=== PATIENT | female | born 1985 | race Caucasian/White ===

== ENCOUNTER 2018-05-07 11:25 | Emergency (ER) | payer OTHER, MEDICAID ==
[2018-05-07] MEDS ORDERED: NS 1,000 ML IV ONE (12:01)
--- NOTE | 2018-05-07 12:01 | EDPHY ---
H & P Stated Complaint: decreased food intake x 10 days--taking ensure Source: Patient Exam Limitations: Clinical condition - Personal History LMP (Females 10-55): Unknown - Medical/Surgical History Hx Asthma: No Hx Chronic Respiratory Disease: No Hx Diabetes: No Hx Cardiac Disease: No Hx Renal Disease: No Hx Cirrhosis: No Hx Alcoholism: No Hx HIV/AIDS: No Hx Splenectomy or Spleen Trauma: No Other PMH: hydrocephalus. cognitive deficits from . seizure disorder. blind - Social History Smoking Status: Never smoked Time Seen by Provider: 05/07/18 12:00 HPI/ROS: HPI: This is a 33-year-old female who presents with Chief Complaint: decreased food intake x 10 days--taking ensure Location: GI Quality: Decreased food intake Duration: 10 days Signs and Symptoms: no fever, no nausea, no vomiting, no hematemesis, no blood in stool, no abdominal bloating, no diarrhea, no back pain, no urinary symptoms , no vaginal bleeding/discharge, no indigestion, no chest pain, no shortness of breath Timing: Worsening Severity: [id number] Context: Patient has a history of cognitive deficits from , hydrocephalus , congenital blindness presents accompanied by both parents from home at the referral from PCp, Dr. Mcintyre at [facility]. Patient is nonverbal and blind. Ten days of decreased appetite. Parents have been feeding her little bits of ensured twice daily. In the office temperature was in the 80s. Two weeks ago patient had a cold, parents are concerned that she may have pneumonia now. Had a slight nonproductive cough this morning. She did finish her menses this morning. Woke up with wet diaper this morning. No history of urinary tract infections. Modifying Factors: None Comment: ROS: A comprehensive 10 system review of systems is otherwise negative aside from elements mentioned in the history of present illness. MEDICAL/SURGICAL/SOCIAL HISTORY: Medical history: hydrocephalus, cognitive deficits from , seizure disorder , blind Surgical history: Denies Social history: Lives with parents. Disabled. Nonsmoker. Family history noncontributory. CONSTITUTIONAL: Nontoxic-appearing adult white female, awake and alert, no obvious distress HEENT: Atraumatic and normocephalic, congenital blindness. Bilateral suborbital darkening noted. Nares patent; no rhinorrhea; no nasal mucosal edema. Tympanic membranes clear. Oropharynx clear, no exudate and moist pink mucosa. Airway patent. No lymphadenopathy. No meningismus. Cardiovascular: Normal S1/S2, regular rate, regular rhythm, without murmur rub or gallop. PULMONARY/CHEST: Symmetrical and nontender. Clear to auscultation bilaterally with diminished bases. Poor inspiratory effort. No accessory muscle usage. ABDOMEN: Soft, nondistended, nontender, no rebound, no guarding, no peritoneal signs, no masses or organomegaly. No CVAT. EXTREMITIES: 2/2 pulses, strength 5/5, no deformities, no clubbing, no cyanosis or edema. NEUROLOGICAL: Nonverbal. Passively moves all contracted extremities. Does not follow simple commands. SKIN: Warm and dry, no erythema. no rash. Good capillary refill. (Felisha Mejía) Constitutional: Initial Vital Signs Temperature (C) 36.0 C 05/07/18 11:31 Heart Rate 60 05/07/18 11:31 Respiratory Rate 16 05/07/18 11:31 Blood Pressure 118/87 H 05/07/18 11:31 O2 Sat (%) 99 05/07/18 11:31 O2 Delivery Mode Room Air Allergies/Adverse Reactions: No Known Allergies Allergy (Verified 05/07/18 11:31) Home Medications: Medication Instructions Recorded Colace 07/31/09 Depakote 07/31/09 Lamictal 07/31/09 Medical Decision Making ED Course/Re-evaluation: Vital signs reviewed and stable upon arrival. No systemic signs. No hypoxia/ respiratory distress. IV access and laboratory studies ordered along with chest x-ray and urinalysis in out catheterization 1250: Chest x-ray one-view my read shows no opacity, no effusion 1357: Labs reviewed. WBC 10 K, H&H 11.4/35.2, and negative influenza. No electrolyte imbalance/acute kidney injury 1413: Urinalysis shows trace ketones but no signs of infection. Long discussion with family and offered admission and they politely declined. 1500: Reassessed patient and parents report that she is looking around and moving her head more than she has over the last few days. 1538: Drank entire can of Ensure. Again offered admission and parents politely refused. This patient was seen under the supervision of my secondary supervising physician. I evaluated care for this patient independently. Discussed this patient with Dr. Reyes who did not see the patient. (Felisha Mejía) The patient was evaluated and managed by the physician assistant surveyor. I have reviewed this chart and I agree with the findings and plan of care as documented , as indicated by my signature. I am the secondary supervising physician. I spoke with patient's primary care physician, Dr. Rivera at [facility], prior to the patient's arrival in the emergency department. Her PCP assures me that the patient's family is actively and compassionately involved in her care and this is borne out by Felisha Mejía's accounts of her interactions with the family. Dr. Rivera is comfortable with this patient returning home. (Wilma Ryees) Differential Diagnosis: Adult fever including but not limited to viral syndromes including influenza, urinary tract infection, pneumonia and sepsis. (Felisha Mejía) - Data Points Laboratory Results: Laboratory Results 05/07/18 12:07 05/07/18 12:05 Medications Given: Discontinued Medications Sodium Chloride (Ns) 1,000 mls @ 0 mls/hr IV ONCE ONE; Wide Open PRN Reason: Protocol Stop: 05/07/18 12:02 Last Admin: 05/07/18 12:09 Dose: 1,000 mls Departure - Departure Disposition: Home, Routine, Self-Care Clinical Impression: Mild dehydration, Poor fluid intake Condition: Good Instructions: Dehydration (ED) Additional Instructions: Return at once for any worsening symptoms or concerns. Referrals: CLAUDIA MCINTYRE [Other] - 3-4 days, if not improved
[2018-05-07 12:19] LABS: PLATELET COUNT 193 10^3/uL (150-400)
[2018-05-07 16:01] VITALS: BP 132/88
== END 2018-05-07 16:11 | disposition home or self-care (01) ==
DX: R63.8 Other symptoms and signs concerning food and fluid intake (principal); E86.0 Dehydration

== ENCOUNTER 2018-05-20 09:57 | Inpatient (IN) | payer OTHER, MEDICAID ==
[2018-05-20] MEDS ORDERED: NS 1,000 ML IV ONE (10:19)
--- NOTE | 2018-05-20 10:23 | EDPHY ---
HPI/HX/ROS/PE/MDM Narrative: CLINICAL IMPRESSION: Left lower lobe pneumonia, weakness, dehydration, possible shunt malfunction ASSESSMENT/PLAN: Patient is a 33-year-old female with a complicated and significant history of hydrocephalus with shunt, severe cognitive impairment, cerebral palsy, seizure disorder and clinical blindness who presents with ongoing worsening cough, decreased oral intake and decreased urine output. Patient is afebrile, she is not toxic appearing and in no acute distress. She is at her baseline and nonverbal. CBC revealed no evidence of leukocytosis. CMP with no significant metabolic abnormality or evidence of acute kidney injury, mild transaminitis. Influenza negative, RSV negative. Valproic acid level subtherapeutic at 35. Chest x-ray revealed left lower lobe aspiration versus pneumonia. Urinalysis revealed no evidence of acute urinary tract infection. CT head revealed dilated ventricles with functioning right-sided shunt however questionable functioning left-sided shunt. Patient was treated conservatively for community- acquired pneumonia and was given Rocephin and azithromycin in the emergency department. Neurosurgery was consulted, Dr. Youngblood spoke with Dr. Mcclain who will formally consult this patient. History and physical examination is consistent with new left lower lobe pneumonia as well as possible left shunt malfunction which could also certainly contribute to the constellation of her symptoms. The patient remained hemodynamically stable in the emergency department. She will be admitted to the hospitalist service, Dr. Whitehead will admit this patient and neurosurgery will follow as well. Case discussed with and patient seen by Dr. Youngblood. DIFFERENTIAL DX: Weakness including but not limited to electrolyte abnormality, infectious causes , shunt malfunction, intracranial hemorrhage, dehydration, malnutrition. ED COURSE: 10:[address] Youngblood 11:27 a.m.: Chest x-ray with new left lower lobe pneumonia versus aspiration. CHIEF COMPLAINT: Worsening cough, weakness, dehydration HPI: Patient is a 33-year-old female with a history of hydrocephalus with shunt, severe cognitive impairment, cerebral palsy, seizure disorder and clinical blindness who presents to the emergency department with ongoing and worsening cough, decreased oral intake and decreased urine output. The patient is present with mother and father who are her very attentive primary caregivers. Parents report approximately 3 weeks ago patient started to develop a cough, has since had decreased oral intake. Was seen and evaluated in the emergency department the end of April with a reassuring workup and discharged home. Since that time she is continuing to have a progressive worsening and productive cough as well as decreased oral intake. They endorses she does cough so hard at times she almost vomits. The parents have been giving their child Ensure however she has very little to or to eat anything. They say that she is not at her baseline, she normally is smiling and happy however seems to be more whiny than normal. Mother reports she had similar symptoms prior to this patient getting sick. They deny any fevers, nausea or vomiting. She is in a diaper, they deny any foul-smelling urine. They do state that her urine output is decreased. Bowel movements have also been decreased, denies any diarrhea, melena or hematochezia. There has been no recent travel, no recent antibiotic use. PMH: Hydrocephalus with shunt, severe cognitive delay, CP, seizure and clinical blindness Pertinent Past Surgical History: Denies Family History: Noncontributory Social History: Lives with parents multimedia specialist, disabled. They deny smoking in the household, no alcohol. REVIEW OF SYSTEMS: All other systems negative Constitutional: Decreased appetite. No fever, no chills. Eyes: No discharge, vision change ENT: No sore throat, congestion, ear pain. Cardiovascular: No chest pain, no palpitations. Respiratory: Cough. No no shortness of breath. Gastrointestinal: No abdominal pain, no vomiting, diarrhea. Genitourinary: No hematuria, dysuria, flank pain, pelvic pain Musculoskeletal: No back pain, joint swelling, joint pain, myalgias. Skin: No rashes, color change. Neurological: No headache, dizziness, weakness. PHYSICAL EXAM: General Appearance: Alert, nonverbal not toxic-appearing, no acute distress. HENT: Normocephalic, atraumatic. Bilateral external ears are normal. Bilateral tympanic membranes are normal with pearly mathew reflex. Nares are clear, mucosa is pink. Oropharynx is clear, uvula is midline. There is no tonsillar enlargement or exudate. Eyes: Congenital blindness, bilateral suborbital darkening Neck: Supple, nontender, no lymphadenopathy, no midline pain, FROM, no meningismus. Respiratory: There are no retractions, lungs are clear to auscultation. Cardiac: Regular rate and rhythm, no murmurs or gallops. Gastrointestinal: Abdomen is soft, nontender, bowel sounds normal, no masses/ hernia, no rigidity, guarding or focal peritoneal findings. Neurological: Nonverbal. Upper extremities contracted, passively moves all extremities. Does not follow commands. Skin: Warm, dry, no rashes, no nodules on palpation. Musculoskeletal: Contracted UE, no swelling, or erythema. Psychiatric: Nonverbal, there is no agitation. MEDICAL DECISION MAKING: Patient was seen independently. Secondary supervising physician at time of evaluation was . Diagnosis: Left lower lobe pneumonia, weakness, possible left shunt malfunction . New, requires workup Summary: See Assessment and Plan for summary of ED visit Clinical lab tests: ordered / reviewed. Independent visualization of images, tracing, or specimens: Yes. Decision to obtain medical records or history from someone other than the patient: Yes parents. Review / Summarize previous medical records: Yes. Discussed patient with another provider: Yes, Dr. Youngblood Patient Progress: Stable, admit . (Korina Garcia) MDM: I also saw the patient at 11:00 a.m.. Patient is blind and developmentally disabled. History was from mom and dad decreased appetite and change of mental status. No significant findings on exam other than the developmental disability. Chest x-ray reviewed by me shows probable left lower lobe pneumonia. I agree with treatment plan and management CT head is ordered to assess MENTAL HEALTH PRACTITIONER shunt integrity Patient has an abnormal head CT showing atrophy and dilated ventricles. It appears that 1 of the MENTAL HEALTH PRACTITIONER shunt tubing is not connected. I consulted discussed case with Neurosurgery who will see the patient in consultation for integrity of the MENTAL HEALTH PRACTITIONER shunt (Ellis Youngblood) - Data Points Imaging Results: Imaging Impressions Chest X-Ray 05/20/18 10:18 Impression: Suspect new left lower lobe pneumonia versus aspiration. Laboratory Results: Laboratory Results 05/20/18 10:55 05/20/18 10:55 05/20/18 05/20/18 05/20/18 11:00 10:55 10:55 WBC 8.12 10^3/uL 10^3/uL (3.80-9.50) RBC 3.61 10^6/uL L 10^6/uL (4.18-5.33) Hgb 10.3 g/dL L g/dL (12.6-16.3) Hct 32.6 % L % (38.0-47.0) MCV 90.3 fL fL (81.5-99.8) MCH 28.5 pg pg (27.9-34.1) MCHC 31.6 g/dL L g/dL (32.4-36.7) RDW 26.0 % H % (11.5-15.2) Plt Count 243 10^3/uL 10^3/uL (150-400) MPV 10.0 fL fL (8.7-11.7) Neut % (Auto) 53.9 % % (39.3-74.2) Lymph % (Auto) 39.5 % % (15.0-45.0) [place] % (Auto) 4.4 % L % (4.5-13.0) Eos % (Auto) 1.4 % % (0.6-7.6) Baso % (Auto) 0.2 % L % (0.3-1.7) Nucleat RBC Rel Count 0.4 % H % (0.0-0.2) Absolute Neuts (auto) 4.37 10^3/uL 10^3/uL (1.70-6.50) Absolute Lymphs (auto) 3.21 10^3/uL H 10^3/uL (1.00-3.00) Absolute Monos (auto) 0.36 10^3/uL 10^3/uL (0.30-0.80) Absolute Eos (auto) 0.11 10^3/uL 10^3/uL (0.03-0.40) Absolute Basos (auto) 0.02 10^3/uL 10^3/uL (0.02-0.10) Absolute Nucleated RBC 0.03 10^3/uL H 10^3/uL (0-0.01) Immature Gran % 0.6 % % (0.0-1.1) Immature Gran # 0.05 10^3/uL 10^3/uL (0.00-0.10) RBC/WBC/PLT Morphology NORMAL (NORMAL) Platelet Estimate ADEQUATE (ADEQ) Sodium REJ Potassium Not Reported Chloride Not Reported Carbon Dioxide Not Reported Anion Gap Not Reported BUN Not Reported Creatinine Not Reported Estimated GFR Not Reported Glucose Not Reported Calcium Not Reported Total Bilirubin Not Reported AST Not Reported ALT Not Reported Alkaline Phosphatase Not Reported Total Protein Not Reported Albumin Not Reported Nasal Influenza A PCR NEGATIVE FOR FLU A (NEGATIVE) Nasal Influenza B PCR NEGATIVE FOR FLU B (NEGATIVE) Valproic Acid REJ RSV (PCR) NEGATIVE FOR RSV (NEGATIVE) Medications Given: Discontinued Medications Sodium Chloride (Ns) 1,000 mls @ 0 mls/hr IV ONCE ONE PRN Reason: Wide Open Stop: 05/20/18 10:20 Last Admin: 05/20/18 11:31 Dose: 1,000 mls Azithromycin 500 mg/ Sodium (Chloride) 255 mls @ 255 mls/hr IV EDNOW ONE PRN Reason: Protocol Stop: 05/20/18 12:30 Last Admin: 05/20/18 13:34 Dose: 255 mls Ceftriaxone Sodium/Dextrose (Rocephin 1 Gm (Premix)) 50 mls @ 100 mls/hr IV EDNOW ONE PRN Reason: Protocol Stop: 05/20/18 12:00 Last Admin: 05/20/18 12:55 Dose: 50 mls Microbiology Results: MICROBIOLOGY 05/20/18 11:00 Nasal, Sinus - Swab Respiratory Panel (PCR) - Final No Organism Detected By Pcr General Initial Vital Signs: Initial Vital Signs Temperature (C) 36.4 C 05/20/18 09:59 Heart Rate 58 L 05/20/18 09:59 Respiratory Rate 17 05/20/18 09:59 Blood Pressure 121/61 H 05/20/18 09:59 O2 Sat (%) 96 05/20/18 09:59 O2 Delivery Mode Room Air Allergies/Adverse Reactions: No Known Allergies Allergy (Verified 05/20/18 09:59) Home Medications: Medication Instructions Recorded Docusate Sodium [Colace 100 MG (*)] 100 mg PO BID 07/31/09 lamoTRIgine [LamICTAL XR] 100 mg PO DAILY 07/31/09 Acetaminophen [Tylenol 325mg (*)] 325 mg PO Q6HRS PRN 05/20/18 Divalproex [Depakote] 250 mg PO DAILY 05/20/18 Divalproex [Depakote] 375 mg PO HS 05/20/18 Herbals/Supplements -Info Only 1 ea PO DAILY 05/20/18 Multivitamins [Multivitamin (*)] 1 each PO DAILY 05/20/18 Departure - Departure Disposition: [facility] Acute Condition: Fair
[2018-05-20 11:14] LABS: PLATELET COUNT 243 10^3/uL (150-400)
[2018-05-20] MEDS ORDERED: AZITHROMYCIN IV 500 MG in NS 250 ML IV ONE (11:31)
[2018-05-20] MEDS ORDERED: ONDANSETRON DISINTEGRATING 4 MG TAB PO PRN (12:48)
[2018-05-20] MEDS ORDERED: ONDANSETRON 4 MG/2 ML VIAL IVP PRN (12:48)
[2018-05-20] MEDS ORDERED: NS 1,000 ML IV SCH (13:45)
--- NOTE | 2018-05-20 15:09 | PDGENHP ---
History and Physical - Chief Complaint Cough, decreased appetite - History of Present Illness This is a 33 y/o female with severe cognitive impairment presenting with a progressively worsening productive cough and decreased appetite and fluid intake. She was last seen in the emergency room late April for the cough and given IV hydration to which her parents, the caregivers, reported she "perked up," and "was looking around more than she has been," so they thought she was improving. Unfortunately, her cough worsened and it "sounded" productive however she is unable to produce any phlegm and her appetite has decreased significantly to only 2 Ensure bottles (8oz, 220 calories per bottle) a day and minimal fluid intake. Her parents report sometimes she coughs so hard she almost vomits. They report she is not at her baseline and is "whiny." The pt is unable to communicate, unable to follow commands, and is clinically blind. Per parents, no fevers, nausea, or vomiting. She is being admitted for treatment and monitoring. Past Medical/Surgical History 1. Hydrocephalus with shunt 2. Severe cognitive impairment 3. Cerebral palsy 4. Seizure disorder 5. Clinical blindness 6. Tendon release 7. Multiple shunts Social 1. Disabled. Cared for by parents full-time. 2. No smoking in household, no illicit drug use. No alcohol use. History Information - Allergies/Home Medication List Allergies/Adverse Reactions: No Known Allergies Allergy (Verified 05/20/18 09:59) Home Medications: Docusate Sodium [Colace 100 MG (*)] 100 mg PO BID 07/31/09 [Last Taken 05/20/18] lamoTRIgine [LamICTAL XR] 100 mg PO DAILY 07/31/09 [Last Taken 05/20/18] Acetaminophen [Tylenol 325mg (*)] 325 mg PO Q6HRS PRN 05/20/18 [Last Taken Unknown] Divalproex [Depakote] 250 mg PO DAILY 05/20/18 [Last Taken 05/20/18] Divalproex [Depakote] 375 mg PO HS 05/20/18 [Last Taken 05/19/18] Multivitamins [Multivitamin (*)] 1 each PO DAILY 05/20/18 [Last Taken 05/20/18] RX: Herbals/Supplements -Info Only 1 ea PO DAILY 05/20/18 [Last Taken Unknown] I have personally reviewed and updated: family history, medical history, social history, surgical history Past Medical History: See HPI list - Surgical History Additional surgical history: See HPI list - Family History Positive for: non-pertinent - Social History Smoking Status: Never smoked Alcohol Use: None Drug Use: None Review of Systems Review of Systems: ROS: 10pt was reviewed & negative except for what was stated in HPI & below Constitutional: Reports: malaise, recent illness EENMT: Reports: no symptoms Cardiac: Reports: no symptoms Respiratory: Reports: cough Gastrointestinal: Reports: no symptoms Genitourinary: Reports: no symptoms Muscolosketal: Reports: no symptoms Skin: Reports: no symptoms Neurological: Reports: pre-existing deficit Hematologic/Lymphatic: Reports: no symptoms Immunologic/Allergy: Reports: no symptoms Physical Exam Physical Exam: Lab data and imaging reviewed Temp Pulse Resp BP Pulse Ox 36.4 C 57 L 16 125/86 H 98 05/20/18 09:59 05/20/18 13:35 05/20/18 13:35 05/20/18 13:35 05/20/18 13:35 Constitutional: chronically ill appearing, uncomfortable Eyes: other (clinical blindness; suborbital darkening) Ears, Nose, Mouth, Throat: dry mucous membranes Cardiovascular: regular rate and rhythym, no murmur, rub, or gallop, No edema Peripheral Pulses: 2+: dorsalis-pedis (R) (Radial 2+), dorsalis-pedis (L) ( Radial 2+) Respiratory: reduced air movement (throughout lung pederson) Gastrointestinal: normoactive bowel sounds, soft, non-tender abdomen, no palpable masses Genitourinary: no bladder fullness, no bladder tenderness Skin: warm, normal color, no rashes or abrasions, no fluctuance, no induration, No mottled Musculoskeletal: other (BUE contracted; unable to follow commands) Neurologic: weakness Psychiatric: other (Unable to assess as pt is non-verbal; per parents, pt's baseline is usually "happy and smiling." In this encounter, she was moving her head left to right and occasionally spit up Ensure the father was attempting to feed her.) Lymph, Heme, Immunologic: no cervical LAD, no supraclavicular LAD Lab Data & Imaging Review 05/20/18 10:55 05/20/18 14:35 WBC 8.12 10^3/uL (3.80-9.50) 05/20/18 10:55 RBC 3.61 10^6/uL (4.18-5.33) L 05/20/18 10:55 Hgb 10.3 g/dL (12.6-16.3) L 05/20/18 10:55 Hct 32.6 % (38.0-47.0) L 05/20/18 10:55 MCV 90.3 fL (81.5-99.8) 05/20/18 10:55 MCH 28.5 pg (27.9-34.1) 05/20/18 10:55 MCHC 31.6 g/dL (32.4-36.7) L 05/20/18 10:55 RDW 26.0 % (11.5-15.2) H 05/20/18 10:55 Plt Count 243 10^3/uL (150-400) 05/20/18 10:55 MPV 10.0 fL (8.7-11.7) 05/20/18 10:55 Neut % (Auto) 53.9 % (39.3-74.2) 05/20/18 10:55 Lymph % (Auto) 39.5 % (15.0-45.0) 05/20/18 10:55 [place] % (Auto) 4.4 % (4.5-13.0) L 05/20/18 10:55 Eos % (Auto) 1.4 % (0.6-7.6) 05/20/18 10:55 Baso % (Auto) 0.2 % (0.3-1.7) L 05/20/18 10:55 Nucleat RBC Rel Count 0.4 % (0.0-0.2) H 05/20/18 10:55 Absolute Neuts (auto) 4.37 10^3/uL (1.70-6.50) 05/20/18 10:55 Absolute Lymphs (auto) 3.21 10^3/uL (1.00-3.00) H 05/20/18 10:55 Absolute Monos (auto) 0.36 10^3/uL (0.30-0.80) 05/20/18 10:55 Absolute Eos (auto) 0.11 10^3/uL (0.03-0.40) 05/20/18 10:55 Absolute Basos (auto) 0.02 10^3/uL (0.02-0.10) 05/20/18 10:55 Absolute Nucleated RBC 0.03 10^3/uL (0-0.01) H 05/20/18 10:55 Immature Gran % 0.6 % (0.0-1.1) 05/20/18 10:55 Immature Gran # 0.05 10^3/uL (0.00-0.10) 05/20/18 10:55 RBC/WBC/PLT Morphology NORMAL (NORMAL) 05/20/18 10:55 Platelet Estimate ADEQUATE (ADEQ) 05/20/18 10:55 Sodium REJ 05/20/18 12:45 Potassium Not Reported 05/20/18 12:45 Chloride Not Reported 05/20/18 12:45 Carbon Dioxide Not Reported 05/20/18 12:45 Anion Gap Not Reported 05/20/18 12:45 BUN Not Reported 05/20/18 12:45 Creatinine Not Reported 05/20/18 12:45 Estimated GFR Not Reported 05/20/18 12:45 Glucose Not Reported 05/20/18 12:45 Calcium Not Reported 05/20/18 12:45 Total Bilirubin Not Reported 05/20/18 12:45 AST Not Reported 05/20/18 12:45 ALT Not Reported 05/20/18 12:45 Alkaline Phosphatase Not Reported 05/20/18 12:45 Total Protein Not Reported 05/20/18 12:45 Albumin Not Reported 05/20/18 12:45 Nasal Influenza A PCR NEGATIVE FOR FLU A (NEGATIVE) 05/20/18 11:00 Nasal Influenza B PCR NEGATIVE FOR FLU B (NEGATIVE) 05/20/18 11:00 Valproic Acid TNP 05/20/18 12:45 RSV (PCR) NEGATIVE FOR RSV (NEGATIVE) 05/20/18 11:00 Assessment & Plan Plan: This is a 33 y/o female with severe cognitive impairment who presents with a worsening 3 week cough and altered mental status. She was seen in late April and given IVF, labwork and imaging were unremarkable at the time. Today, CXR reveals suspicion of left lower lobe pneumonia or aspiration as well as left sided shunt fracture. Head CT to evaluate for LOOM SETTER FOURDRINIER shunt obstruction revealing left parietal shunt catheter is well-positioned however the shunt tubing at the level of the neck does not appear to be in continuity. Also marked dilatation of the fourth and lateral ventricles may merely be due to severe cerebral and cerebellar volume loss. Normal caliber third ventricle suggests shunt dysfunction is less likely. 1. Aspiration pneumonia: she is hemodynamically stable at this time. +cough, altered mental status, poor PO intake and appetite, changes in recent CXRs, per parents she has a poor gag reflex -Received Azithromycin + Rocephin in the emergency room; will initiate Unasyn 3gm IV Q6H -TECHNOLOGY ADVISOR to evaluate; NPO until cleared by TECHNOLOGY ADVISOR -Dietary consult -Received 1L NS in emergency room; d/t poor oral intake, will assist with IVF -Negative for influenza or RSV 2. Left-shunt fracture: this has been seen on the previous CXR dated 05/07/18. No other recent CXR or imaging to compare except in 2009 which appears to not be fractured. Timing of when the fracture took place is uncertain. -Neurosurgery to consult and evaluate; spoke to MAIRA Christianson 3. Seizures: valproic acid level low at 32.3. Previous labwork dating 04/28/18 revealed therapeutic range. The parents report she has been able to continue to take all her medications. Continue to monitor. -Seizure precautions and assessments QShift -She may continue depakote and lamictal 4. Cognitive impairment: she is clinically blind, unable to follow commands, cannot verbalize. Parents are her full-time caregivers. Diet: NPO, speech evaluation needs to occur before intake of regular diet and medications VTE ppx: SCDs Code: Full Dispo: Admit to inpatient d/t multiple medical complexes
[2018-05-20] MEDS ORDERED: BISACODYL 10 MG SUPP PR PRN (16:38)
[2018-05-20] MEDS: D5W NS 1,000 ML IV SCH (16:50)
[2018-05-20] MEDS: AMPICILLIN/SULBACTAM 3 GM in NS 100 ML IV SCH ×2 (17:24→23:59)
--- NOTE | 2018-05-20 17:30 | PDMN ---
Medical Necessity Medical necessity: Pt meets inpt criteria per MD order and MCG M-283, Pneumonia Due to Aspiration, 3 days. 33 y/o w/hx hydrocephalus w/shunt, CP, severe cog impairment, seizure disorder, and blindness presents w/worsening prod cough for 3 weeks, AMS, and decreased PO intake admitted w/aspiration PNA. Also, L shunt fx (timing of fx uncertain), to be evaluated by Neurosurg. Est LOS>2MN for management of above in pt w/complex medical hx.
--- NOTE | 2018-05-20 17:50 | GCON ---
CHIEF COMPLAINT: Failure to thrive. Decreased appetite and cough. HISTORY OF PRESENT ILLNESS: This is a 33-year-old female with a history of a complex shunt history and has had 2 BOOK CRITIC shunts placed approximately 15 years ago. She has been shunt dependent since as she was severely premature. She presented to [facility] today with progressively worsening productive cough and a decreased appetite and fluid intake. She was last seen in the emergency room late April for the cough and given IV hydration and was doing well, but she has started to decline over the last week with minimal fluid intake and a worsening cough. Neurosurgery service was consulted due to her history of a shunt in order to rule out shunt malfunction. She normally gets all of her shunt care at the [facility] and does have a team there. They state that the shunt on the right side of her head has been disconnected, but has not been removed totally as they did not want to put her through another surgery. They do state that the left shunt has been functioning. Parents do state that they do not believe that her current decline is due to her shunt, as in the past, she has presented very differently when she is having problems with her shunt. REVIEW OF SYSTEMS: Unable to obtain as the patient is currently nonverbal. PAST MEDICAL HISTORY: Patient has a history of hydrocephalus, shunt dependency , severe cognitive impairment, cerebral palsy, seizure disorder, clinical blindness, tendon release, and multiple shunts. SOCIAL HISTORY: Patient is cared for by her parents manager maritime who are at her bedside today. ALLERGIES: Patient has no known drug allergies. HOME MEDICATIONS: Include: Colace, Lamictal, Tylenol, Depakote, multivitamin, herbal supplements. SURGICAL HISTORY: Multiple shunt revisions, the last shunt revision, per the parents, they do not remember where this was done. It could have been done at [facility] in [place], or [facility], but was replacement and revision of her left ventriculoperitoneal shunt. She has had multiple shunt revisions in the past. For other surgical history, please see the list as stated in the EMR. FAMILY HISTORY: Reviewed and is not pertinent to this admission. SOCIAL HISTORY: She is a nonsmoker and no alcohol use and no other illicit drug use. OBJECTIVE: VITAL SIGNS: Temperature 36.4 degrees Celsius, pulse 57, respirations 16, blood pressure 125/86, pulse ox 98% on room air. CONSTITUTIONAL: Patient is chronically ill appearing, younger than stated age, is moaning with some discomfort with an audible raspy cough. EYES: Pupils were equal and reactive to light and accommodation. Patient is tracking appropriately. However, the patient's clinical state is not allowing her to participate fully in her exam today. HEAD: Both shunts were palpated. The left and right shunt valves were palpated and were unable to palpate a depressible reservoir. Parents are not sure what type of shunt she has, so it is unclear to say whether or not there should have been a palpable reservoir or not. NEUROLOGIC: Patient is moving all 4 extremities. However, again exam is limited due to the patient's severe cognitive abilities and overall weakness and atrophy of her musculature. SKIN: There is no cyanosis or edema noted. There is no tenderness to palpation over her shunt sites. PSYCHOLOGICAL: Unable to really assess as patient is nonverbal. Per the parents, the patient' s baseline is usually happy and smiling. Today, she does have some sort of tremor in her head, moving [id number], and occasionally is moaning as well. LABORATORY DATA: White blood cell count 8.12, red blood cell count 3.61, hemoglobin 10.3, hematocrit 32.6, platelets 243. Sodium 146, potassium 4.8, chloride 112, carbon dioxide 27, anion gap 7, BUN 21, creatinine 0.5, estimated GFR greater than 60. Glucose 104, total bilirubin less than 0.1, AST 85, ALT 120, alk phos 141, total protein 5.8, albumin 2.8. Influenza negative for flu A and B. Valproic acid level is 32.3. RSV negative for RSV. DIAGNOSTIC IMAGIN. A head CT without contrast was performed and does show marked dilatation of the 4th and lateral ventricles merely may be just severe cerebral and cerebellar volume loss. Normal-caliber in 3rd ventricle suggests shunt dysfunction is less likely. 2. Right parietal occipital shunt is well positioned transversing the posterior aspect of the right 3rd ventricle and 4th ventricle and extracranial tubing appears to be intact. 3. Left parietal shunt catheter is well positioned. However, the shunt tubing at the level of the neck does not appear to be in continuity on the radiograph. 4. No intracranial hemorrhage or subdural hematoma. 5. A chest x-ray was performed that shows suspect new left lower lobe pneumonia versus aspiration. ASSESSMENT AND PLAN: This is a 33-year-old female who has a history of a complex shunt history and shunt dependency from . She presents to the [facility] ER with failure to thrive and a worsening cough and failure to drink fluids. Neurosurgery services were consulted to examine and rule out any shunt malfunction as reason for her failure to thrive. The patient was seen by Dr. Madera and myself and did speak with the parents and unfortunately without her prior scans or other medical records to review in such a complex shunt patient, it is hard to assess whether her CT scan looks any different or if there have been any changes to her scan, as we do not have anything to compare to. Per her parents, they do report that they do not feel that her symptoms currently are medical device sales representative of a shunt malfunction as in the past, she has presented very differently when this has been occurring. We will obtain a shunt series to ensure that the shunt catheter is intact and beyond that, we did suggest that the parents follow up with their normal shunt team down at the [place]. They understood this and again it was felt that her symptoms currently were not in line with a shunt malfunction, as in the past, she has displayed very different symptoms when this has been occurring. We will follow up on her shunt series tomorrow to ensure that her shunts are in line. Again, of note, her right BOOK CRITIC shunt reportedly has been disconnected and is no longer functioning, but the left BOOK CRITIC shunt is supposed to be the one that is working currently. We will obtain a shunt series and then likely sign off tomorrow and recommend further followup with her shunt team at the [place]. As it seems that most of her symptoms are consistent possibly with a newfound lower lobe pneumonia. /[id number]/MODL MTDD
--- NOTE | 2018-05-20 19:26 | HOSPPROG ---
Hospitalist Progress Note Assessment/Plan: Discussed case in detail with Grazyna Monroe LEAN SIX SIGMA BLACK BELT. Patient seen and examined. Agree with H&P as outlined by Grazyna Monroe. Aspiration pneumonia - seems to have started with viral illness that then resulted in metabolic encephalopathy, with subsequent decrease swallow function and then secondary aspiration pneumonia. She is currently not able to swallow anything and parents have been using syringes to squirt water and Ensure into her mouth. Prior to this illness she has never has swallow issues in the past. They are very concerned with her nutrition. I suspect she will not pass her swallow eval tomorrow. NPO for now. If she fails swallow they would like to have Dobbhoff tube placed for temporary nutrition, with hope that her swallow returns to baseline when she is improved. They think she would tolerate a Dobbhoff and not pull it out. They know what a PEG tube is, and would like to avoid if possible, still hopeful that her swallow will return. I explained the risks of TPN and that using her GI tract would be preferable if artificial nutrition is needed. Objective: Vital Signs Temp Pulse Resp BP Pulse Ox 36.4 C 59 L 16 115/67 96 05/20/18 09:59 05/20/18 15:46 05/20/18 15:46 05/20/18 15:46 05/20/18 15:46 Laboratory Results 05/20/18 14:35 05/19/18 05/20/18 05/21/18 05:59 05:59 05:59 Intake Total 1000 Balance 1000 CXR reviewed, my personal interpretation is - LLL PNA case d/w Neurosurgery regarding SENIOR FINANCIAL REPORTING ACCOUNTANT shunt check - Physical Exam Constitutional: no apparent distress, chronically ill appearing, cachectic Cardiovascular: regular rate and rhythym, no murmur, rub, or gallop Respiratory: no respiratory distress, no rales or rhonchi, clear to auscultation Gastrointestinal: normoactive bowel sounds, soft, non-tender abdomen, no palpable masses Skin: no rashes or abrasions, no fluctuance, no induration Neurologic: No AAOx3 Psychiatric: encephalopathic, poor insight, poor judgement, poor memory, other ( minimally responsive), No interacting appropriately, No agitated ICD10 Worksheet Patient Problems: Problems Problem Status Onset Aspiration pneumonia Acute - ICD10 Problem Qualifiers (1) Aspiration pneumonia Qualifiers: Aspiration pneumonia type: unspecified Laterality: left Lung location: lower lobe of lung Qualified Code(s): J69.0 - Pneumonitis due to inhalation of food and vomit
[2018-05-20] MEDS ORDERED: KETOROLAC 30 MG/1 ML SDV IVP ONE (19:31)
[2018-05-20] MEDS: VALPROATE SODIUM IV SCH (20:19)
[2018-05-20] MEDS: D5W IV SCH (20:19)
[2018-05-21] MEDS: VALPROATE SODIUM IV SCH ×3 (02:33→14:15)
[2018-05-21] MEDS: D5W IV SCH ×3 (02:33→14:15)
[2018-05-21] MEDS: AMPICILLIN/SULBACTAM 3 GM in NS 100 ML IV SCH ×4 (05:15→23:38)
[2018-05-21] MEDS: D5W NS 1,000 ML IV SCH (05:55)
[2018-05-21 06:26] LABS: INR 1.05 (0.83-1.16); PROTIME(PATIENT) 13.9 SEC (12.0-15.0)
[2018-05-21 06:31] LABS: PLATELET COUNT 172 10^3/uL (150-400)
--- NOTE | 2018-05-21 07:52 | NEUSURGPN ---
Assessment/Plan: 33 yo female with developmental delay, nonverbal, with COSMETIC ASSEMBLER shunt. Pneumonia - neuro stable - shunt series reviewed by Dr. Madera. Appears to be 3 shunt systems. Two on the right and one on the left. There is one on the right that appears to be [employer] and intact - do not suspect a shunt malfunction - recommend patient establish care upon discharge with a shunt specialist at - will sign off and follow peripherally, please contact us with any further questions/concerns Discussed with Dr. Madera Subjective: No new overnight issues. Nonverbal. Objective: Eyes open. Nonverbal Moves all extremities - Physician Discussed Patient with Dr.: Madera Neurosurgery Physical Exam - Vitals, I&O, Labs I and O 05/20/18 05/21/18 05/22/18 05:59 05:59 05:59 Intake Total 1000 Balance 1000 Weight 29.484 kg Intake: IV Infused (ml) 1000 Other: Number of Voids Incontinence 5 Number of Stools Incontinence 1 Vital Signs Temp Pulse Resp BP Pulse Ox 35.0 C L 62 16 104/78 98 05/21/18 04:00 05/21/18 04:00 05/21/18 04:00 05/21/18 04:00 05/21/18 04:00 Laboratory Results 05/21/18 05:55 05/21/18 05:55 ICD10 Worksheet Patient Problems: Problems Problem Status Onset Aspiration pneumonia Acute
[2018-05-21] MEDS: DOCUSATE SODIUM 100 MG CAP PO SCH ×3 (08:59→21:35)
[2018-05-21] MEDS: MULTIVITAMINS 1 EACH TAB PO SCH (08:59)
[2018-05-21] MEDS ORDERED: Herbals/Supplements -Info Only PO SCH (09:00)
[2018-05-21] MEDS: LAMOTRIGINE 100 MG PO SCH (09:27)
--- NOTE | 2018-05-21 15:02 | ASMTCMCOM ---
CM Note CM Note Notes: Met with pt's mother, pt admitted for pneumonia. Pt is a 33 yr old cognitively impaired and non verbal woman, her parents are her grape grower care givers although they do have a woman who takes care of her in her home 6 hrs a day except Sundays. Mother interested in discussing code status, Rani from [facility] will come and meet with her today. DC Plan: Home w/parents Date Signed: 05/21/2018 03:01 PM Electronically Signed By:Connie Loya RN
--- NOTE | 2018-05-21 17:43 | HOSPPROG ---
Hospitalist Progress Note Assessment/Plan: * Aspiration pneumonia -IV Unasyn * Cerebral palsy with severe cognitive dysfunction * Dysphagia -passed swallow today - advance diet * Hydrocephalus s/p BODY PRESS OPERATOR shunt -reviewed by neurosurgery - they are okay * Bilateral hip dislocation * Seizure disorder -back to PO valproic acid * Increased LFT -check liver US COR status - parents requested discussion - there seems to be disagreement between and regarding what COR status is desired. Will allow them to discuss overnight and check in with them tomorrow to see if decision to change DNR Subjective: non verbal, passed swallow Objective: Vital Signs Temp Pulse Resp BP Pulse Ox 35.2 C L 57 L 16 109/71 98 05/21/18 15:55 05/21/18 15:55 05/21/18 15:55 05/21/18 15:55 05/21/18 15:55 Laboratory Results 05/21/18 05:55 05/21/18 05:55 05/20/18 05/21/18 05/22/18 05:59 05:59 05:59 Intake Total 1000 Balance 1000 PT 13.9 SEC (12.0-15.0) 05/21/18 05:55 INR 1.05 (0.83-1.16) 05/21/18 05:55 Skull Xray - BODY PRESS OPERATOR shunt okay CXR viewed, my personal interpretation is - left sided infiltrate, focal - Physical Exam Constitutional: no apparent distress, chronically ill appearing, cachectic Cardiovascular: regular rate and rhythym, no murmur, rub, or gallop Respiratory: no respiratory distress, no rales or rhonchi, clear to auscultation Gastrointestinal: normoactive bowel sounds, soft, non-tender abdomen, no palpable masses Skin: no rashes or abrasions, no fluctuance, no induration Neurologic: No AAOx3 Psychiatric: encephalopathic, poor insight, poor judgement, poor memory, No interacting appropriately, No agitated ICD10 Worksheet Patient Problems: Problems Problem Status Onset Aspiration pneumonia Acute - ICD10 Problem Qualifiers (1) Aspiration pneumonia Qualifiers: Aspiration pneumonia type: unspecified Laterality: left Lung location: lower lobe of lung Qualified Code(s): J69.0 - Pneumonitis due to inhalation of food and vomit
[2018-05-21] MEDS: DIVALPROEX NA 125 MG TAB PO SCH (21:34)
[2018-05-22] MEDS: AMPICILLIN/SULBACTAM 3 GM in NS 100 ML IV SCH ×3 (06:00→17:42)
[2018-05-22 06:03] LABS: PLATELET COUNT 197 10^3/uL (150-400)
[2018-05-22] MEDS: DIVALPROEX NA 125 MG TAB PO SCH ×2 (08:57→20:25)
[2018-05-22] MEDS: LAMOTRIGINE 100 MG PO SCH (08:58)
[2018-05-22] MEDS: MULTIVITAMINS 1 EACH TAB PO SCH (08:59)
[2018-05-22] MEDS: DOCUSATE SODIUM 100 MG CAP PO SCH (09:05)
[2018-05-22] MEDS: 1/2 NS 1,000 ML IV SCH (09:16)
[2018-05-22] MEDS ORDERED: LORazepam 2 MG/ML INJ IVP ONE (14:10)
[2018-05-22] MEDS ORDERED: IOPAMIDOL (ISOVUE 370) 100 ML BTL IV ONE (15:37)
[2018-05-22] MEDS ORDERED: LACTULOSE 20 GM/30 ML UDCUP PO PRN (16:28)
[2018-05-22] MEDS ORDERED: POLYETHYLENE GLYCOL 3350 17 GM PKT PO PRN (16:28)
[2018-05-22] MEDS ORDERED: BISACODYL 10 MG SUPP PR PRN (16:28)
[2018-05-22] MEDS ORDERED: MAGNESIUM HYDROXIDE 30 ML UDCUP PO PRN (16:28)
--- NOTE | 2018-05-22 17:28 | HOSPPROG ---
Hospitalist Progress Note Assessment/Plan: * Aspiration pneumonia -IV Unasyn * Cerebral palsy with severe cognitive dysfunction * Dysphagia -passed swallow - but no liquids allowed * Hydrocephalus s/p PROVIDER NETWORK ANALYST shunt -reviewed by neurosurgery - they are okay * Bilateral hip dislocation * Seizure disorder -PO valproic acid * Increased LFT with increased lipase -US/CT unremarkable -viral hepatitis panel pending -? hypoperfusion due to dehydration - but unclear why they are still rising * Hypernatremia -needs more free H2O, but not cleared by ST -IVF 1/2 NS * Fecal impaction -stool ball seen on CT -manual disimpaction/enemas as needed to clear Subjective: No new complaints Objective: Vital Signs Temp Pulse Resp BP Pulse Ox 35.4 C L 57 L 14 117/76 97 05/22/18 04:00 05/22/18 16:00 05/22/18 16:00 05/22/18 16:00 05/22/18 16:00 Laboratory Results 05/22/18 05:46 05/22/18 05:46 05/21/18 05/22/18 05/23/18 05:59 05:59 05:59 Intake Total 1000 0 Balance 1000 0 PT 13.9 SEC (12.0-15.0) 05/21/18 05:55 INR 1.05 (0.83-1.16) 05/21/18 05:55 abd us - negative case d/w DR Hernandez and CT reviewed - liver/pancreas okay, fecal impaction at rectum - Physical Exam Constitutional: no apparent distress, appears nourished, not in pain Cardiovascular: regular rate and rhythym, no murmur, rub, or gallop Respiratory: no respiratory distress, no rales or rhonchi, clear to auscultation Gastrointestinal: normoactive bowel sounds, soft, non-tender abdomen, no palpable masses Skin: no rashes or abrasions, no fluctuance, no induration Neurologic: No AAOx3 Psychiatric: encephalopathic, poor insight, poor judgement, poor memory, No interacting appropriately, No agitated ICD10 Worksheet Patient Problems: Problems Problem Status Onset Aspiration pneumonia Acute - ICD10 Problem Qualifiers (1) Aspiration pneumonia Qualifiers: Aspiration pneumonia type: unspecified Laterality: left Lung location: lower lobe of lung Qualified Code(s): J69.0 - Pneumonitis due to inhalation of food and vomit
[2018-05-22] MEDS: SENNOSIDES/DOCUSATE SODIUM TAB PO SCH (20:25)
[2018-05-23] MEDS: 1/2 NS 1,000 ML IV SCH ×2 (00:26→16:03)
[2018-05-23] MEDS: AMPICILLIN/SULBACTAM 3 GM in NS 100 ML IV SCH ×5 (00:26→23:30)
[2018-05-23 06:57] LABS: PLATELET COUNT 189 10^3/uL (150-400)
[2018-05-23] MEDS: LAMOTRIGINE 100 MG PO SCH (08:58)
[2018-05-23] MEDS: DIVALPROEX NA 125 MG TAB PO SCH ×2 (08:59→20:03)
[2018-05-23] MEDS: MULTIVITAMINS 1 EACH TAB PO SCH (09:00)
[2018-05-23] MEDS: SENNOSIDES/DOCUSATE SODIUM TAB PO SCH ×2 (09:00→20:03)
--- NOTE | 2018-05-23 17:25 | HOSPPROG ---
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 * Dysphagia -passed swallow - but no liquids allowed -taking only 100 calories per day - family very concerned about nutrition -place feeding tube until increased PO -at baseline she has great appetite, no dysphagia and self feeds finger foods * Hydrocephalus s/p HOUSE ADMIN shunt -reviewed by neurosurgery - they are okay * Metabolic encephalopathy -per family she is not at baseline, mental status significant reduced * Bilateral hip dislocation * Seizure disorder -PO valproic acid * Increased LFT with increased lipase -US/CT unremarkable -viral hepatitis panel pending, will send other serologies -? 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 Subjective: spitting out most food, taking only 100calories per day Objective: Vital Signs Temp Pulse Resp BP Pulse Ox 35.1 C L 58 L 16 121/87 H 96 05/23/18 16:00 05/23/18 16:00 05/23/18 16:00 05/23/18 16:00 05/23/18 16:00 Laboratory Results 05/23/18 06:27 05/23/18 06:27 05/22/18 05/23/18 05/24/18 05:59 05:59 05:59 Intake Total 0 749 Balance 0 749 PT 13.9 SEC (12.0-15.0) 05/21/18 05:55 INR 1.05 (0.83-1.16) 05/21/18 05:55 - Time Spent With Patient Time Spent with Patient: greater than 35 minutes (discussing risk benefit of feeding tube) Time Spent with Patient: Greater than 35 minutes spent on this patients care, greater than 50% of time spent counseling, educating, and coordinating care regarding the above mentioned plan. - Physical Exam Constitutional: no apparent distress, appears nourished, not in pain Cardiovascular: regular rate and rhythym, no murmur, rub, or gallop Respiratory: no respiratory distress, no rales or rhonchi, clear to auscultation Gastrointestinal: normoactive bowel sounds, soft, non-tender abdomen, no palpable masses Skin: no rashes or abrasions, no fluctuance, no induration Neurologic: No AAOx3 Psychiatric: encephalopathic, poor insight, poor judgement, poor memory, No interacting appropriately, No agitated ICD10 Worksheet Patient Problems: Problems Problem Status Onset Aspiration pneumonia Acute - ICD10 Problem Qualifiers (1) Aspiration pneumonia Qualifiers: Aspiration pneumonia type: unspecified Laterality: left Lung location: lower lobe of lung Qualified Code(s): J69.0 - Pneumonitis due to inhalation of food and vomit
[2018-05-24 02:51] LABS: HEPATITIS A ANTIBODY IGM (BCH) NEGATIVE (NEGATIVE); HEPATITIS B CORE AB IGM NEGATIVE (NEGATIVE); HEPATITIS B SURFACE ANTIGEN NEGATIVE (NEGATIVE); HEPATITIS C ANTIBODY TOTAL NEGATIVE (NEGATIVE)
[2018-05-24] MEDS: AMPICILLIN/SULBACTAM 3 GM in NS 100 ML IV SCH ×3 (05:09→17:35)
[2018-05-24 07:42] LABS: INR 0.9 (0.83-1.16); PROTIME(PATIENT) 12.4 SEC (12.0-15.0)
[2018-05-24 09:55] LABS: HIV TYPE 1 AND 2 NEGATIVE (NEGATIVE)
[2018-05-24] MEDS: DIVALPROEX NA 125 MG TAB PO SCH ×2 (10:24→20:30)
[2018-05-24] MEDS: LAMOTRIGINE 100 MG PO SCH (10:24)
[2018-05-24] MEDS: MULTIVITAMINS 1 EACH TAB PO SCH (10:26)
[2018-05-24] MEDS: SENNOSIDES/DOCUSATE SODIUM TAB PO SCH ×2 (10:26→20:29)
--- NOTE | 2018-05-24 11:36 | ASMTCMCOM ---
CM Note CM Note Notes: CM discussed w/ Dr. Monk. Pt had a feeding tube placed yesterday. Pts family would like to discuss code status w/ Dr. Monk. Dr. Monk will have conversation w/ pts family. Pt will most likely d/c with family, as they are her primary caregivers. [facility] has cleared pt. CM available for needs. Plan: Independent Date Signed: 05/24/2018 11:35 AM Electronically Signed By:ITZEL Rabago
--- NOTE | 2018-05-24 14:17 | HOSPPROG ---
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 * Decreased PO intake -passed swallow - but no liquids allowed, refusing PO despite -was taking only 100 calories per day prior to admission - family very concerned about nutrition -s/p NGT placement on 05/23 until increased PO -at baseline she has great appetite, no dysphagia and self feeds finger foods -May be infection, pancreatitis (elevated Lipase) contributing to decreased PO/refusal of food, discussed with patient's parents this afternoon that if PO intake does not increase we would be discussing PEG tube placement * Hydrocephalus s/p MAGNETIC LOCATER shunt -reviewed by neurosurgery - signed off * Metabolic encephalopathy -per family she is not at baseline, mental status significant reduced -May be infection contributing vs. medication effects (on anti-epileptics) vs. seizure -Head CT on admission with no acute abnormality -Will check levels of Lamotrigine, Depakote, consult neurology if abnormal * Bilateral hip dislocation * Seizure disorder -PO Lamotrigine, Depakote, checking levels as above * Increased LFT with increased lipase -US/CT unremarkable -viral hepatitis negative, will send other serologies -? 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 FEN: Tube Feeds DVT PPx: Lovenox Code: Full, discussed with parents today Dispo: Pending clinical course Subjective: Patient appears comfortable, non-verbal Objective: Vital Signs Temp Pulse Resp BP Pulse Ox 35.5 C L 71 16 114/66 97 05/24/18 08:00 05/24/18 08:00 05/24/18 08:00 05/24/18 08:00 05/24/18 08:00 Laboratory Results 05/24/18 07:15 05/24/18 07:15 05/23/18 05/24/18 05/25/18 05:59 05:59 05:59 Intake Total 749 950 Balance 749 950 PT 12.4 SEC (12.0-15.0) 05/24/18 07:15 INR 0.90 (0.83-1.16) 05/24/18 07:15 - Physical Exam Constitutional: chronically ill appearing Eyes: PERRL Cardiovascular: regular rate and rhythym Respiratory: no respiratory distress Gastrointestinal: soft, non-tender abdomen Skin: warm Neurologic: No AAOx3 Psychiatric: No interacting appropriately ICD10 Worksheet Patient Problems: Problems Problem Status Onset Aspiration pneumonia Acute
[2018-05-25] MEDS: AMPICILLIN/SULBACTAM 3 GM in NS 100 ML IV SCH ×5 (00:07→23:13)
[2018-05-25] MEDS: LAMOTRIGINE 100 MG PO SCH (08:20)
[2018-05-25] MEDS: MULTIVITAMINS 1 EACH TAB PO SCH (08:22)
[2018-05-25] MEDS: DIVALPROEX NA 125 MG TAB PO SCH ×2 (08:25→21:50)
[2018-05-25] MEDS: ENOXAPARIN 40 MG/0.4 ML SYR SC SCH (08:30)
[2018-05-25] MEDS: SENNOSIDES/DOCUSATE SODIUM TAB PO SCH ×2 (10:01→21:55)
--- NOTE | 2018-05-25 11:19 | HOSPPROG ---
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 * Decreased PO intake -passed swallow - but no liquids allowed, refusing PO despite -was taking only 100 calories per day prior to admission - family very concerned about nutrition -s/p NGT placement on 05/23 until increased PO -at baseline she has great appetite, no dysphagia and self feeds finger foods -May be infection, pancreatitis (elevated Lipase) contributing to decreased PO/refusal of food, discussed with patient's parents that if PO intake does not increase we would be discussing PEG tube placement * Hydrocephalus s/p CHILD CARE shunt -reviewed by neurosurgery - signed off * Metabolic encephalopathy -per family she is not at baseline, mental status significant reduced -May be infection contributing vs. medication effects (on anti-epileptics) vs. seizure -Head CT on admission with no acute abnormality -Will check levels of Lamotrigine, Depakote, consult neurology if abnormal * Bilateral hip dislocation * Seizure disorder -PO Lamotrigine, Depakote, checking levels as above * Increased LFT with increased lipase -US/CT unremarkable -viral hepatitis negative, will send other serologies -? 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 FEN: Tube Feeds DVT PPx: Lovenox Code: Full, discussed with parents today Dispo: Pending clinical course Subjective: Patient more awake and alert this AM Objective: Vital Signs Temp Pulse Resp BP Pulse Ox 35.4 C L 73 14 117/76 94 05/25/18 00:00 05/25/18 08:00 05/25/18 08:00 05/25/18 08:00 05/25/18 08:00 Laboratory Results 05/25/18 10:35 05/24/18 05/25/18 05/26/18 05:59 05:59 05:59 Intake Total 950 395 Output Total 150 Balance 950 245 PT 12.4 SEC (12.0-15.0) 05/24/18 07:15 INR 0.90 (0.83-1.16) 05/24/18 07:15 ICD10 Worksheet Patient Problems: Problems Problem Status Onset Aspiration pneumonia Acute
[2018-05-25] MEDS ORDERED: GUAIFENESIN/DM 10 ML UDCUP PO PRN (11:20)
[2018-05-25] MEDS: OXYMETAZOLINE 30 ML NASAL SPRAY EACHNARE SCH ×2 (11:49→21:43)
[2018-05-25 12:09] LABS: PLATELET COUNT 208 10^3/uL (150-400)
[2018-05-25] MEDS: ACETAMINOPHEN 325 MG TAB PO PRN (13:59)
[2018-05-26] MEDS: AMPICILLIN/SULBACTAM 3 GM in NS 100 ML IV SCH ×2 (06:02→11:19)
[2018-05-26] MEDS: SENNOSIDES/DOCUSATE SODIUM TAB PO SCH ×2 (09:10→20:19)
[2018-05-26] MEDS: MULTIVITAMINS 1 EACH TAB PO SCH (09:10)
[2018-05-26] MEDS: DIVALPROEX NA 125 MG TAB PO SCH ×2 (09:11→20:20)
[2018-05-26] MEDS: LAMOTRIGINE 100 MG PO SCH (09:11)
[2018-05-26] MEDS: ENOXAPARIN 40 MG/0.4 ML SYR SC SCH (09:11)
[2018-05-26] MEDS: OXYMETAZOLINE 30 ML NASAL SPRAY EACHNARE SCH ×2 (09:12→20:18)
--- NOTE | 2018-05-26 15:30 | HOSPPROG ---
Hospitalist Progress Note Assessment/Plan: * Aspiration pneumonia -Completing IV Unasyn today (Day 7 of 7 day course) * Decreased PO intake -passed swallow - but no liquids allowed, refusing PO despite -was taking only 100 calories per day prior to admission - family very concerned about nutrition -s/p NGT placement on 05/23 until increased PO -at baseline she has great appetite, no dysphagia and self feeds finger foods -May be infection, pancreatitis (elevated Lipase) contributing to decreased PO/refusal of food, discussed with patient's parents that if PO intake does not increase we would be discussing PEG tube placement - Patient able to take some PO today, continue to monitor calorie intake * Hydrocephalus s/p SALES VENDOR shunt -reviewed by neurosurgery - signed off * Metabolic encephalopathy -per family she is not at baseline, mental status significant reduced -May be infection contributing vs. medication effects (on anti-epileptics) vs. seizure -Head CT on admission with no acute abnormality -Levels of Lamotrigine, Depakote WNL * Bilateral hip dislocation * Seizure disorder -PO Lamotrigine, Depakote, checked levels as above * Increased LFT with increased lipase -US/CT unremarkable -viral hepatitis negative, other serologies pending -? 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 FEN: Tube Feeds DVT PPx: Lovenox Code: Full, discussed with parents today Dispo: Pending clinical course Subjective: Patient continues to be more alert and awake this AM Objective: Vital Signs Temp Pulse Resp BP Pulse Ox 36.7 C 68 16 98/55 L 96 05/26/18 07:23 05/26/18 07:23 05/26/18 07:23 05/26/18 07:23 05/26/18 07:23 Laboratory Results 05/25/18 11:57 05/26/18 04:39 05/25/18 05/26/18 05/27/18 05:59 05:59 05:59 Intake Total 395 1080 Output Total 150 Balance 245 1080 PT 12.4 SEC (12.0-15.0) 05/24/18 07:15 INR 0.90 (0.83-1.16) 05/24/18 07:15 - Physical Exam Constitutional: no apparent distress Eyes: anicteric sclera Ears, Nose, Mouth, Throat: dry mucous membranes Cardiovascular: regular rate and rhythym Respiratory: no respiratory distress Gastrointestinal: soft, non-tender abdomen Skin: normal color Neurologic: No AAOx3 Psychiatric: No interacting appropriately ICD10 Worksheet Patient Problems: Problems Problem Status Onset Aspiration pneumonia Acute
[2018-05-27] MEDS: ACETAMINOPHEN 325 MG TAB PO PRN ×2 (04:29→09:34)
[2018-05-27] MEDS: MULTIVITAMINS 1 EACH TAB PO SCH (09:19)
[2018-05-27] MEDS: SENNOSIDES/DOCUSATE SODIUM TAB PO SCH ×2 (09:19→20:32)
[2018-05-27] MEDS: ENOXAPARIN 40 MG/0.4 ML SYR SC SCH (09:19)
[2018-05-27] MEDS: LAMOTRIGINE 100 MG PO SCH (09:20)
[2018-05-27] MEDS: DIVALPROEX NA 125 MG TAB PO SCH ×2 (09:20→20:09)
[2018-05-27] MEDS: OXYMETAZOLINE 30 ML NASAL SPRAY EACHNARE SCH ×2 (09:21→20:09)
--- NOTE | 2018-05-27 12:41 | HOSPPROG ---
Hospitalist Progress Note Assessment/Plan: * Aspiration pneumonia -Completed IV Unasyn on 05/26 (Day 7 of 7 day course) * Decreased PO intake -passed swallow - but no liquids allowed, refusing PO despite -was taking only 100 calories per day prior to admission - family very concerned about nutrition -s/p NGT placement on 05/23 until increased PO -at baseline she has great appetite, no dysphagia and self feeds finger foods -May be infection, pancreatitis (elevated Lipase) contributing to decreased PO/refusal of food, discussed with patient's parents that if PO intake does not increase we would be discussing PEG tube placement -Patient able to take some PO today, continue to monitor calorie intake, d/c NGT when tolerating enough PO * Increased LFT with increased lipase -LFTs elevated, downtrending with slight increase today - US and CT performed during this admission which did not show any acute etiology -viral hepatitis negative, other serologies incudling SHIRLEY, CMV, EBV, HIV, AnTi-smooth muscle negative as well pending -? hypoperfusion due to dehydration vs. medication SE (checked levels of anti -epileptics which were WNL) - Continue to monitor * Hydrocephalus s/p PULPWOOD CUTTER shunt -reviewed by neurosurgery - signed off * Metabolic encephalopathy -Improving daily -May be infection contributing vs. medication effects (on anti-epileptics) vs. 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 FEN: Tube Feeds DVT PPx: Lovenox Code: Full, discussed with parents today Dispo: Pending clinical course, d/c pending patient's PO intake, need for records management associate feeding tube if no Subjective: Patient more awake and alert this AM Objective: Vital Signs Temp Pulse Resp BP Pulse Ox 36.7 C 64 16 103/63 96 05/26/18 07:23 05/27/18 08:00 05/27/18 08:00 05/27/18 08:00 05/27/18 08:00 Laboratory Results 05/27/18 05:45 05/27/18 05:45 05/26/18 05/27/18 05/28/18 05:59 05:59 05:59 Intake Total 1080 Balance 1080 PT 12.4 SEC (12.0-15.0) 05/24/18 07:15 INR 0.90 (0.83-1.16) 05/24/18 07:15 - Physical Exam Constitutional: chronically ill appearing Eyes: anicteric sclera Ears, Nose, Mouth, Throat: dry mucous membranes Respiratory: no respiratory distress Gastrointestinal: soft, non-tender abdomen Skin: normal color Neurologic: No AAOx3 Psychiatric: No interacting appropriately ICD10 Worksheet Patient Problems: Problems Problem Status Onset Aspiration pneumonia Acute
--- NOTE | 2018-05-27 12:55 | ASMTCMCOM ---
CM Note CM Note Notes: Despite repeated attempts by LINE SERVICER to get patient to take PO, she is refusing. Hospitalist to discuss PEG tube placement w parents. CM will continue to follow for any possible d/c needs. Date Signed: 05/27/2018 12:55 PM Electronically Signed By:Eva Presley RN
[2018-05-28] MEDS ORDERED: SODIUM ZIRCONIUM CYCLOSILICATE 10 GM PACKET PO ONE (06:48)
[2018-05-28] MEDS: OXYMETAZOLINE 30 ML NASAL SPRAY EACHNARE SCH ×2 (08:43→20:39)
[2018-05-28] MEDS: ENOXAPARIN 40 MG/0.4 ML SYR SC SCH (08:43)
[2018-05-28] MEDS: MULTIVITAMINS 1 EACH TAB PO SCH (08:43)
[2018-05-28] MEDS: LAMOTRIGINE 100 MG PO SCH (08:43)
[2018-05-28] MEDS: DIVALPROEX NA 125 MG TAB PO SCH ×2 (08:43→20:38)
[2018-05-28] MEDS: SENNOSIDES/DOCUSATE SODIUM TAB PO SCH ×2 (08:44→19:46)
--- NOTE | 2018-05-28 12:43 | HOSPPROG ---
Hospitalist Progress Note Assessment/Plan: * Aspiration pneumonia -Completed IV Unasyn on 05/26 (Day 7 of 7 day course) * Decreased PO intake -passed swallow - but no liquids allowed, refusing PO despite -was taking only 100 calories per day prior to admission - family very concerned about nutrition -s/p NGT placement on 05/23 until increased PO -at baseline she has great appetite, no dysphagia and self feeds finger foods -May be infection, pancreatitis (elevated Lipase) contributing to decreased PO/refusal of food, discussed with patient's parents that if PO intake does not increase we would be discussing PEG tube placement -Patient able to take some PO today, continue to monitor calorie intake, d/c NGT when tolerating enough PO * Increased LFT with increased lipase -LFTs elevated, downtrending with slight increase today - US and CT performed during this admission which did not show any acute etiology -viral hepatitis negative, other serologies incudling SHIRLEY, CMV, EBV, HIV, AnTi-smooth muscle negative as well pending -? hypoperfusion due to dehydration vs. medication SE (checked levels of anti -epileptics which were WNL) - Continue to monitor * Hydrocephalus s/p REFUND SPECIALIST shunt -reviewed by neurosurgery - signed off * Metabolic encephalopathy -Improving daily -May be infection contributing vs. medication effects (on anti-epileptics) vs. 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 FEN: Tube Feeds DVT PPx: Lovenox Code: Full, discussed with parents today Dispo: Pending clinical course, d/c pending patient's PO intake, need for longwall machine operator helper feeding tube if no Objective: Vital Signs Temp Pulse Resp BP Pulse Ox 97.4 F 86 16 105/45 L 91 L 05/28/18 08:00 05/28/18 08:00 05/28/18 08:00 05/28/18 08:00 05/28/18 08:00 Laboratory Results 05/28/18 08:57 05/28/18 05:24 05/27/18 05/28/18 05/29/18 11:59 11:59 11:59 Intake Total 650 Balance 650 PT 12.4 SEC (12.0-15.0) 05/24/18 07:15 INR 0.90 (0.83-1.16) 05/24/18 07:15 ICD10 Worksheet Patient Problems: Problems Problem Status Onset Aspiration pneumonia Acute
[2018-05-29] MEDS: LEVOTHYROXINE 25 MCG TAB PO SCH (05:36)
[2018-05-29 06:04] LABS: PLATELET COUNT 265 10^3/uL (150-400)
[2018-05-29] MEDS: DIVALPROEX NA 125 MG TAB PO SCH ×2 (08:51→20:45)
[2018-05-29] MEDS: LAMOTRIGINE 100 MG PO SCH (08:51)
[2018-05-29] MEDS: ENOXAPARIN 40 MG/0.4 ML SYR SC SCH (08:53)
[2018-05-29] MEDS: MULTIVITAMINS 1 EACH TAB PO SCH (08:57)
[2018-05-29] MEDS: SENNOSIDES/DOCUSATE SODIUM TAB PO SCH ×2 (08:57→22:07)
[2018-05-29] MEDS: OXYMETAZOLINE 30 ML NASAL SPRAY EACHNARE SCH ×2 (09:06→22:07)
[2018-05-30] MEDS: LEVOTHYROXINE 25 MCG TAB PO SCH (06:20)
[2018-05-30] MEDS: DIVALPROEX NA 125 MG TAB PO SCH (07:42)
[2018-05-30] MEDS: LAMOTRIGINE 100 MG PO SCH (07:42)
[2018-05-30] MEDS: MULTIVITAMINS 1 EACH TAB PO SCH (07:42)
[2018-05-30] MEDS: OXYMETAZOLINE 30 ML NASAL SPRAY EACHNARE SCH (07:43)
[2018-05-30] MEDS: ENOXAPARIN 40 MG/0.4 ML SYR SC SCH (07:44)
[2018-05-30] MEDS: SENNOSIDES/DOCUSATE SODIUM TAB PO SCH (07:46)
[2018-05-30 08:23] VITALS: BP 115/85
--- NOTE | 2018-05-30 14:34 | ASMTDCNOTE ---
Case Management Discharge Discharge Order Complete? Answers: Yes Patient to Obtain Answers: via Family Medications Transportation Arranged Answers: Family/Friends Transport will Pick (Date 05/30/2018 12:00 AM & Time) Family Notified Answers: Yes Notes: in the room Discharge Comments Notes: Spoke with pt's parents in the room. Pt has private caregivers who support the family at home. Pt is now eating and family plans to transport her home in their wheelchair equipped vehicle. OYSTER CULTIVATOR recommending dc to home. No CM needs noted at this time. CM available should needs change. Date Signed: 05/30/2018 02:33 PM Electronically Signed By:Milagros Kwong
--- NOTE | 2018-05-30 14:38 | ASDISCHSUM ---
Discharge Information Plan Status:Home with No Needs Medically Cleared to Leave:05/29/2018 Discharge Date:05/29/2018 CM D/C Disposition:Home, Routine, Self-Care ADT D/C Disposition:Home, Routine, Self-Care Projected Discharge Date:05/29/2018 Transportation at D/C:Family Discharge Delay Reason: Follow-Up Date:05/29/2018 Discharge Slot: Final Diagnosis:Pneumonia Placement Information Patient Contact Information Contact Name:RIO Relationship:Mother Address:[address] Work Phone: City:[place] [facility] Phone: [facility]/Zip Code:[place] [address] Email: Financial Information Financial Class:HMO and PPO Plans Primary Plan Desc:[facility] Primary Plan Number:[id number] Secondary Plan Desc:[employer] [place] Secondary Plan Number:[id number] Assessment Information LACE LACE Length of stay for Answers: 7-13 days current admission Acuity / Level of Answers: Yes Care: Did the patient have an inpatient admission? 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 Pt is a 33 yr old cognitively impaired and non verbal woman, her parents are her time clock inspector care givers although they do have a woman who takes care of her in her home 6 hrs a day except Sundays. Mother interested in discussing code status, Rani from [facility] will come and meet with her today. DC Plan: Home w/parents Date Signed: 05/21/2018 03:01 PM Electronically Signed By:Connie Loya RN [facility] CM Progress Note CM Note CM Note Notes: CM discussed w/ Dr. Monk. Pt had a feeding tube placed yesterday. Pts family would like to discuss code status w/ Dr. Monk. Dr. Monk will have conversation w/ pts family. Pt will most likely d/c with family, as they are her primary caregivers. [facility] has cleared pt. CM available for needs. Plan: Independent Date Signed: 05/24/2018 11:35 AM Electronically Signed By:ITZEL Rabago [facility] CM Progress Note CM Note CM Note Notes: Despite repeated attempts by FOREST LOGISTICS MANAGER to get patient to take PO, she is refusing. Hospitalist to discuss PEG tube placement w parents. CM will continue to follow for any possible d/c needs. Date Signed: 05/27/2018 12:55 PM Electronically Signed By:Eva Presley RN Case Management Discharge Plan Note Case Management Discharge Discharge Order Complete? Answers: Yes Patient to Obtain Answers: via Family Medications Transportation Arranged Answers: Family/Friends Transport will Pick (Date 05/30/2018 12:00 AM & Time) Family Notified Answers: Yes Notes: in the room Discharge Comments Notes: Spoke with pt's parents in the room. Pt has private caregivers who support the family at home. Pt is now eating and family plans to transport her home in their wheelchair equipped vehicle. FOREST LOGISTICS MANAGER recommending dc to home. No CM needs noted at this time. CM available should needs change. Date Signed: 05/30/2018 02:33 PM Electronically Signed By:Milagros Kwong Intervention Information
== END 2018-05-30 14:57 | disposition home or self-care (01) | DRG 177 ==
LOC: OBSVTOIN 13:38 → F3E 15:31
PROVIDERS: ADMIT Internal Medicine; ATTEND Internal Medicine
DX: J69.0 Pneumonitis due to inhalation of food and vomit (principal); G93.41 Metabolic encephalopathy; E87.0 Hyperosmolality and hypernatremia; E86.0 Dehydration; G80.9 Cerebral palsy, unspecified; H54.8 Legal blindness, as defined in USA; G40.909 Epilepsy, unspecified, not intractable, without status epilepticus; R13.10 Dysphagia, unspecified; K56.41 Fecal impaction; Z98.2 Presence of cerebrospinal fluid drainage device
CPT/HCPCS: 80175-90; 82607-90; 84481-90; 86255-90; 86644-90; 86645-90; 86664-90; 86665-90; 92526-GN; 92610-GN; 96365; G0472; J0295; J0456; J0696; J1650; J1885; Q9967

== ENCOUNTER 2018-07-16 14:37 | Emergency (ER) | payer OTHER, MEDICAID ==
--- NOTE | 2018-07-16 16:00 | EDPHY ---
H & P Time Seen by Provider: 07/16/18 15:21 HPI/ROS: CHIEF COMPLAINT: Tremors, grimace HISTORY OF PRESENT ILLNESS: The patient is a 33-year-old female with severe cognitive impairment, who has had numerous shunts placed presents emergency department with tremors and increased grimace. The patient's care providers and parents are concerned that her shunt is malfunctioning. She has done this previously when she has shunt malfunction. Patient currently has a shunt on the right side. This had failed and was inoperable. She subsequently had a shunt placed on the left side. (right was left in place). The family has noticed that the left shunt is newly beaded and firm. Patient has not had any vomiting. No fever. Patient was admitted to the hospital in May with an aspiration pneumonia. Patient had an outpatient chest x-ray today that was reported as normal. REVIEW OF SYSTEMS: 10 systems were reveiwed and are negative with the exception of the elements mentioned in the history of present illness. Past Medical/Surgical History: Includes hydrocephalus with shunt, severe cognitive impairment, cerebral palsy, seizure disorder, blindness, aspiration pneumonia Social history: The patient lives with her family. Smoking Status: Never smoked Physical Exam: 36.1, 114/89, 64, 18 GENERAL: Wheelchair-bound. Eyes open. Contracted extremities. Not able to respond. HEENT: No signs of dehydration. Blind NECK: Normal, supple. Patient has bilateral shunts in place. The left shunt is firm to palpation. It is beaded. RESPIRATORY: Clear to auscultation bilaterally, no rales, rhonchi or wheezing. CVS: Regular rate and rhythm, no rubs, murmurs, or gallops. ABDOMEN: Soft, nondistended. BACK: Normal to inspection, no CVA tenderness. SKIN: Normal color, no rash, warm, dry. No pallor. EXTREMITIES: No pedal edema, no calf tenderness, no joint swelling. NEURO/PSYCH: Severe cognitive impairment. In wheelchair. Unresponsive to voice or questioning. Contracted extremities. Spontaneous movement of her head neck. Constitutional: Initial Vital Signs Temperature (C) 36.1 C 07/16/18 14:46 Heart Rate 64 07/16/18 14:46 Respiratory Rate 18 07/16/18 14:46 Blood Pressure 114/89 H 07/16/18 14:46 O2 Sat (%) 98 07/16/18 14:46 O2 Delivery Mode Room Air Allergies/Adverse Reactions: No Known Allergies Allergy (Verified 07/16/18 14:45) Home Medications: Medication Instructions Recorded Docusate Sodium [Colace 100 MG (*)] 100 mg PO BID 07/31/09 lamoTRIgine [LamICTAL XR] 100 mg PO DAILY 07/31/09 Acetaminophen [Tylenol 325mg (*)] 325 mg PO Q6HRS PRN 05/20/18 Divalproex [Depakote] 250 mg PO DAILY 05/20/18 Divalproex [Depakote] 375 mg PO HS 05/20/18 Herbals/Supplements -Info Only 1 ea PO DAILY 05/20/18 Multivitamins [Multivitamin (*)] 1 each PO DAILY 05/20/18 Levothyroxine [Synthroid 25 mcg 25 mcg PO DAILY #30 tab 05/30/18 (*)] Medical Decision Making - Diagnostics Imaging Results: Imaging Impressions Head CT 07/16/18 16:05 Impression: 1. No definite acute findings. 2. Stable positioning of ventriculostomy catheters, with grossly stable marked atrophy and ventriculomegaly with relative sparing of the third ventricle. 3. Stable discontinuity of the left shunt catheter at the level of the clavicle since May 2018. 4. Additional findings as above. Findings discussed with PEARL COOK 07/16/2018 at 18:21. Skull X-Ray 07/16/18 16:08 Impression: Bilateral intracranial shunt catheters. No obvious change. A lateral view of this skull would be helpful for comparison purposes. Chest X-Ray 07/16/18 16:11 Impression: No significant change x2 months. ED Course/Re-evaluation: In the emergency department I discussed the case with the patient's care providers in parents. The states that she typically grimaces and becomes more tremulous when her shunt becomes occluded. They have been to this reportedly 10 times. They noticed that her left-sided shunt is newly firm and beaded. The only difference between her previous episodes is that she is not actively vomiting. The patient gets her care at . I discussed the case with Dr. Mcclain from Neurosurgery. He recommended a head CT was shunt series. He recommended I contact Neurosurgery at . neurosurgery was paged. I reviewed the patient's previous medical record. On 05/20/2018 she had an evaluation by Neurosurgery. At that time she had a shunt series reviewed by Dr. Madera. Per the report, did appear to be 3 shunt system. 2 on the right and 1 on the left. The shunt on the right appeared to be a [employer] and intact. Did not suspect shunt malfunction. White count is normal. Hematocrit is slightly low. Chemistry panel is pending. Imaging is pending. I updated the family. I discussed the case with Neurosurgery from . He recommended Dr. Mcclain see the patient in the emergency department. Head CT: Please refer the dictated report. No change from previous imaging. Shunt series. Unchanged from previous imaging. I discussed the case with Dr. Mcclain from Neurosurgery. He came to the emergency department to evaluate the patient. I discussed the case with Neurosurgery. He felt this was likely shunt problem and I should consult with Neurology. I discussed the case with Dr. Huntley from Neurology. They felt the patient should go directly to the ER. I discussed the case with Dr. Valente from the ER. She accepted the patient. Patient was in the emergency department for extended period time due to her initial workup and multiple phone calls with [place]. Differential Diagnosis: My differential includes but is not limited to hydrocephalus, shunt malfunction , meningitis, encephalitis, bacteremia, sepsis, pneumonia, aspiration pneumonia Critical Care Time: Patient required 55 min of critical care time. This was exclusive of any unbundled procedure. This was due to patient's presentation, altered mental status, consultation with Neurosurgery at [facility] and , time at bedside and review of her previous medical record. - Data Points Laboratory Results: Laboratory Results 07/16/18 17:05 07/16/18 17:05 07/16/18 07/16/18 17:05 17:05 WBC 6.26 10^3/uL 10^3/uL (3.80-9.50) RBC 3.61 10^6/uL L 10^6/uL (4.18-5.33) Hgb 10.5 g/dL L g/dL (12.6-16.3) Hct 33.4 % L % (38.0-47.0) MCV 92.5 fL fL (81.5-99.8) MCH 29.1 pg pg (27.9-34.1) MCHC 31.4 g/dL L g/dL (32.4-36.7) RDW 26.5 % H % (11.5-15.2) Plt Count 160 10^3/uL 10^3/uL (150-400) MPV 10.0 fL fL (8.7-11.7) Neut % (Auto) 50.7 % % (39.3-74.2) Lymph % (Auto) 41.7 % % (15.0-45.0) [place] % (Auto) 5.4 % % (4.5-13.0) Eos % (Auto) 1.8 % % (0.6-7.6) Baso % (Auto) 0.2 % L % (0.3-1.7) Nucleat RBC Rel Count 1.0 % H % (0.0-0.2) Absolute Neuts (auto) 3.18 10^3/uL 10^3/uL (1.70-6.50) Absolute Lymphs (auto) 2.61 10^3/uL 10^3/uL (1.00-3.00) Absolute Monos (auto) 0.34 10^3/uL 10^3/uL (0.30-0.80) Absolute Eos (auto) 0.11 10^3/uL 10^3/uL (0.03-0.40) Absolute Basos (auto) 0.01 10^3/uL L 10^3/uL (0.02-0.10) Absolute Nucleated RBC 0.06 10^3/uL H 10^3/uL (0-0.01) Immature Gran % 0.2 % % (0.0-1.1) Immature Gran # 0.01 10^3/uL 10^3/uL (0.00-0.10) Platelet Estimate ADEQUATE (ADEQ) Polychromasia 1+ H Hypochromasia 2+ H Basophilic Stippling 1+ H Microcytic Cells 1+ H Target Cells 1+ H Oval Macrocytes 3+ H Schistocytes 1+ H Smear Review By Pending Sodium 143 mEq/L mEq/L (135-145) Potassium 4.7 mEq/L mEq/L (3.5-5.2) Chloride 101 mEq/L mEq/L (97-110) Carbon Dioxide 33 mEq/l H mEq/l (22-31) Anion Gap 9 mEq/L mEq/L (6-14) BUN 33 mg/dL H mg/dL (7-23) Creatinine 0.9 mg/dL mg/dL (0.6-1.0) Estimated GFR > 60 Glucose 76 mg/dL mg/dL (70-100) Calcium 10.8 mg/dL H mg/dL (8.5-10.4) Phosphorus 4.4 mg/dL mg/dL (2.5-4.5) Departure - Departure Disposition: [facility] Clinical Impression: Altered mental status Qualifiers: Altered mental status type: unspecified Qualified Code(s): R41.82 - Altered mental status, unspecified Condition: Good Referrals: CLAUDIA ZHANG MD [Primary Care Provider] - As per Instructions
[2018-07-16 17:18] LABS: PLATELET COUNT 160 10^3/uL (150-400)
[2018-07-16 23:02] VITALS: BP 141/75
--- NOTE | 2018-07-17 17:28 | GCON ---
[f rep st] CONSULTATION OPERATIVE REPORT DATE OF CONSULTATION: 07/16/2018 CONSULTING SERVICES: Emergency Medicine. SALES SERVICE PROMOTER: Neurosurgery. REASON FOR CONSULT: Rule out shunt malfunction. HISTORY OF PRESENT ILLNESS: The patient is a 33-year-old female with severe cognitive impairment and developmental delay, who had a ventriculoperitoneal shunt placed at 2 months due to cranial medicall y according to mother and father. They have cared for her every need since that time. They estimate she has had approximately 10 total revisions in her lifetime and the last was about 8 or 9 years ago down at the [place]. For the past month or 2 she has been acting differently and having unusual tremors. This seems to be more frequent and more severe and they brought her in for a rule out shunt malfunction today. Her mother has also noted significant beading and fullness to the shunt tract al orestes her left neck, which is a change. The patient is unable to provide any history, but her parents are very knowledgeable of her baseline neurologic status. Her head CT appears approximately stable, although there is motion artifact and, in my opinion, she may have an enlarged ventricle. The head C T is complicated. She has multiple organ catheters and septations in her ventricles and significant enlargement of her ventricles, both on priors and on today's scans. PAST MEDICAL/SURGICAL HISTORY: Per HPI, cerebral palsy, seizure disorder, blindness, aspiration pneu monia. ALLERGIES: No known drug allergies. CODE STATUS: Full. SOCIAL HISTORY: Patient is completely dependent and lives with her parents at home, therefore she aguila s never smoked or used drugs or alcohol. FAMILY HISTORY: No history of hydrocephalus in the family per the parents' report. REVIEW OF SYSTEMS: Unable to obtain as the patient cannot communicate or give her own history. OBJECTIVE: VITAL SIGNS: Afebrile at 36.1, heart rate 64, respiratory rate 18, blood pressure 114/89 , saturating 98% on room air. NEUROLOGIC: The patient is awake, her eyes are open. She is unable t o communicate whatsoever either expressively or receptively. She does not follow commands. She is c ontractured. She is completely blind. She somewhat moves all extremities but, again, due to her con tractures and cerebral palsy there is nothing meaningful in terms of her motor function. She is david rely neurologically inhibited and has one of the most severe cases of cerebral palsy I have seen in s ome time. Her shunt valve does seem slightly hardened, but seems to pump and refill. There is signi ficant beading to her catheter and neck region, but this could be just from scar formation as opposed to actual collection of spinal fluid. The collection is not fluctuant, it is hard. LABS: White blood cells 6.26, hemoglobin 10.5, platelet count 160. Sodium 143, potassium 4.7, BUN 3 3, creatinine 0.9, glucose 76. REVIEW OF IMAGING: I reviewed the patient's noncontrasted head CT and her shunt series. She has mul tiple organ catheters. She appears to have a connected left-sided shunt system. The ventricles are enlarged and septated. This is approximately stable from her head CT in May of this year when radha izaguirre had aspiration pneumonia; however, it is possible that her 4th ventricle appears slightly enlarged compared to priors. It is difficult to know for sure because there is significant motion artifact on her scans. IMPRESSION AND PLAN: 33-year-old female with cerebral palsy, congenital hydrocephalus, complicated v entricular with septated ventricles, multiple shunt operations in her life, the last of wh ich took place at the [place]. This is a very complicated case and needs an academic center to ev aluate and follow this patient long-term. Had an at length conversation with the patient's mother an d father at the bedside. I explained my findings and explained my recommendations. This is a case t hat surgically I could perform, but would likely be very difficult to manage at our hospital. I spok dmitriy to her mother and father and explained to them that I almost never recommend transfer, but in this case this is a complicated and academic level hydrocephalus picture and recommended a transfer down t o the [place] directly via ambulance. There would be no mishaps with her admission there. I rela yed this to the emergency room physicians. Everyone seemed pleased with my recommendations. The pat ient is, as best I can tell, at approximately her baseline. There does not appear to be any emergent symptoms going on, but I think given the complicated nature, this just needs to be sent to the [facility] and in the future she needs to follow with them as well. I did offer my card in case they had any questions. They, again, were grateful with the care I provided and seemed appreciative of my rec ommendations and in favor of them. /[id number]/MODL
== END 2018-07-16 22:05 | disposition short-term general hospital (02) ==
DX: R41.82 Altered mental status, unspecified (principal); G91.9 Hydrocephalus, unspecified; G80.9 Cerebral palsy, unspecified; G43.909 Migraine, unspecified, not intractable, without status migrainosus; H54.8 Legal blindness, as defined in USA; Z98.2 Presence of cerebrospinal fluid drainage device